=== PATIENT | male | born 1955 | race Caucasian/White ===

== ENCOUNTER → 2024-12-02 12:31 | Outpatient (REF) | payer MEDICARE, SELFPAY ==
[2024-12-02 13:17] LABS: Hematocrit 42.6 % (39.0-52.0); Hemoglobin 14.8 g/dL (13.0-18.0); Mean Corp Hgb Conc. 34.7 g/dL (33.0-37.0); Mean Corpuscular Volume 87.5 fL (80.0-94.0); Nucleated Red Blood Cells % 0 % (-); Platelet Count 224 10^3/uL (130-400); Red Cell Dist. Width 13.8 % (11.5-14.5)
[2024-12-02 14:17] LABS: ALT (SGPT) 199 U/L (0-50); AST (SGOT) 43 U/L (17-59); Albumin 4.1 g/dl (3.5-5.0); Alkaline Phosphatase 118 U/L (38-126); Blood Urea Nitrogen 20 mg/dl (9-20); Calcium 9.1 mg/dl (8.4-10.2); Carbon Dioxide 26 mmol/L (22-30); Chloride 106 mmol/L (98-107); Glucose 129 mg/dl (70-99); Lipase 74 U/L (23-300); Potassium 4.2 mmol/L (3.5-5.1); Sodium 142 mmol/L (135-145); Total Protein 6.9 g/dl (6.3-8.2); eGFR > 60.00
[2024-12-02 14:50] LABS: Amylase 39 U/L (30-110)
== END ==
LOC: REG 12:31
PROVIDERS: ATTENDING PHYSICIAN Physician Assistant Medical; FAMILY PHYSICIAN Family Medicine
DX: R10.9 Unspecified abdominal pain (principal); K21.9 Gastro-esophageal reflux disease without esophagitis; R82.998 Other abnormal findings in urine; L29.9 Pruritus, unspecified
CPT/HCPCS: 36415; 80053; 82150; 83690; 85025

== ENCOUNTER → 2024-12-03 06:48 | Outpatient (REF) | payer MEDICARE, SELFPAY | LOC: RAD 06:48 | PROVIDERS: ATTENDING PHYSICIAN Physician Assistant Medical; REFERRING PHYSICIAN Internal Medicine | DX: R10.9 Unspecified abdominal pain (principal); R18.8 Other ascites; K74.60 Unspecified cirrhosis of liver; N28.9 Disorder of kidney and ureter, unspecified; K80.20 Calculus of gallbladder without cholecystitis without obstruction; E80.6 Other disorders of bilirubin metabolism | CPT/HCPCS: 74177; 76700; Q9967 ==

== ENCOUNTER → 2024-12-24 07:16 | Outpatient (REF) | payer MEDICARE, SELFPAY | LOC: MRI 3T 07:16 | PROVIDERS: ATTENDING PHYSICIAN Specialist; PRIMARYCARE PHYSICIAN Family Medicine | DX: R10.84 Generalized abdominal pain (principal) | CPT/HCPCS: 74183; A9575 ==

== ENCOUNTER 2025-01-05 06:06 | Day surgery (SDC) | payer MEDICARE, SELFPAY ==
[2025-01-05 07:05] VITALS: BP 100/75; BMI 26.6
[2025-01-05 07:15] VITALS: BMI 26.6
[2025-01-05 09:09] VITALS: BP 110/81; BP_SYST 15
[2025-01-05 09:15] VITALS: BP 115/80
[2025-01-05 09:30] VITALS: BP 125/82
[2025-01-05 09:45] VITALS: BP 126/79
[2025-01-05 10:05] VITALS: BP 127/76
== END 2025-01-05 10:20 | disposition home or self-care (01) ==
LOC: SDS 06:06
PROVIDERS: ATTENDING PHYSICIAN Specialist
DX: K80.50 Calculus of bile duct without cholangitis or cholecystitis without obstruction (principal); K22.89 Other specified disease of esophagus; K20.90 Esophagitis, unspecified without bleeding; K57.10 Diverticulosis of small intestine without perforation or abscess without bleeding; R74.8 Abnormal levels of other serum enzymes; R10.84 Generalized abdominal pain
CPT/HCPCS: 43262; 74330; 76000; C1769

== ENCOUNTER 2025-03-24 06:16 | Day surgery (SDC) | payer MEDICARE, SELFPAY | END 2025-03-24 11:57 | disposition home or self-care (01) | LOC: GI 06:16 | PROVIDERS: ATTENDING PHYSICIAN Specialist; FAMILY PHYSICIAN Family Medicine | DX: K22.70 Barrett's esophagus without dysplasia (principal); K20.90 Esophagitis, unspecified without bleeding; K57.10 Diverticulosis of small intestine without perforation or abscess without bleeding | CPT/HCPCS: 43239; 88305 ==

== ENCOUNTER → 2025-04-14 12:55 | Outpatient (REF) | payer MEDICARE, SELFPAY ==
[2025-04-14 14:18] LABS: Urine Character Clear (Clear)
[2025-04-14 14:19] LABS: Hematocrit 46.6 % (39.0-52.0); Hemoglobin 16.7 g/dL (13.0-18.0); Mean Corp Hgb Conc. 35.8 g/dL (33.0-37.0); Mean Corpuscular Volume 86.1 fL (80.0-94.0); Nucleated Red Blood Cells % 0 % (-); Platelet Count 154 10^3/uL (130-400); Red Cell Dist. Width 12.5 % (11.5-14.5)
[2025-04-14 14:26] LABS: Urine White Cell 0-2 /HPF (0-5)
[2025-04-14 15:48] LABS: ALT (SGPT) 38 U/L (0-50); AST (SGOT) 23 U/L (17-59); Albumin 4.9 g/dl (3.5-5.0); Alkaline Phosphatase 48 U/L (38-126); Blood Urea Nitrogen 22 mg/dl (9-20); Calcium 9.3 mg/dl (8.4-10.2); Carbon Dioxide 25 mmol/L (22-30); Chloride 101 mmol/L (98-107); Glucose 144 mg/dl (70-99); Lipase 44 U/L (23-300); Potassium 4.2 mmol/L (3.5-5.1); Sodium 136 mmol/L (135-145); Total Protein 7.7 g/dl (6.3-8.2); eGFR > 60.00
[2025-04-14 16:20] LABS: TSH 1.87 uIU/ml (0.47-4.68)
== END ==
LOC: REG 12:55
PROVIDERS: ATTENDING PHYSICIAN Student in an Organized Health Care Education/Training Program
DX: R10.30 Lower abdominal pain, unspecified (principal); R11.0 Nausea
CPT/HCPCS: 36415; 80053; 81003; 81015; 83690; 84153; 84154; 84443; 85025; 87086

== ENCOUNTER → 2025-04-15 09:36 | Outpatient (REF) | payer MEDICARE, SELFPAY | LOC: RAD 09:36 | PROVIDERS: ATTENDING PHYSICIAN Student in an Organized Health Care Education/Training Program; FAMILY PHYSICIAN Family Medicine | DX: R10.30 Lower abdominal pain, unspecified (principal) | CPT/HCPCS: 74177; Q9967 ==

== ENCOUNTER 2025-04-15 19:15 | Inpatient (IN) | payer MEDICARE, SELFPAY ==
[2025-04-15 15:40] VITALS: BMI 27.7
[2025-04-15 15:48] VITALS: BP 121/76
[2025-04-15 16:18] LABS: Hematocrit 46.9 % (39.0-52.0); Hemoglobin 16.7 g/dL (13.0-18.0); Mean Corp Hgb Conc. 35.6 g/dL (33.0-37.0); Mean Corpuscular Volume 85.1 fL (80.0-94.0); Nucleated Red Blood Cells % 0 % (-); Platelet Count 156 10^3/uL (130-400); Red Cell Dist. Width 12.8 % (11.5-14.5)
[2025-04-15 16:31] LABS: ALT (SGPT) 33 U/L (0-50); AST (SGOT) 21 U/L (17-59); Albumin 4.4 g/dl (3.5-5.0); Alkaline Phosphatase 37 U/L (38-126); Blood Urea Nitrogen 24 mg/dl (9-20); Calcium 8.9 mg/dl (8.4-10.2); Carbon Dioxide 26 mmol/L (22-30); Chloride 99 mmol/L (98-107); Glucose 121 mg/dl (70-99); Lipase 35 U/L (23-300); Potassium 3.6 mmol/L (3.5-5.1); Sodium 136 mmol/L (135-145); Total Protein 7.2 g/dl (6.3-8.2); eGFR > 60.00
[2025-04-15 17:40] VITALS: BP 114/73
[2025-04-15] MEDS: NSS 1000 IV ×3 (17:53→21:20)
[2025-04-15] MEDS: ZOSYN 50 IV ×2 (17:54→23:21)
--- NOTE | 2025-04-15 17:59 | ED.GENMED ---
History of Present Illness
General
Chief Complaint: Abdominal Symptoms
Source: patient, records and physician
Exam Limitations: none
Time Seen by Provider: 04/15/25 17:20
Nursing documentation reviewed up to this point in time: agreed with
History of Present Illness
History of Present Illness:
69-year-old male with a past medical history of hypertension, GERD who presents to the ER for evaluation of abdominal pain�outpatient workup concerning for cholecystitis. 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
significant upper abdominal pain. He says he had pain all day yesterday had nausea and vomiting in the evening and pain improved with vomiting. Today he only had a small amount to eat but he says his pain has been less. No fevers or chills. He
saw his primary doctor for evaluation and was sent for outpatient labs and CT and was found to have signs concerning for cholecystitis. Referred to the ER for assessment. He does report history of gallstones and choledocholithiasis in December of
this year. Aside from abdominal pain and vomiting he denies any change in his bowel habits. Denies fever or chills. Denies other acute complaints. Review of medication shows no blood thinners.
Past History
Past History
ED Past Medical History: HTN and Other (Diverticular disease)
ED Past Surgical History: None
Social History
Tobacco: Non-smoker
Alcohol: None
Drug: None
Personal:
Living: with family
Family History
Family History: Other (Noncontributory)
Review of Systems
Review of Systems
All Other Systems: ROS reviewed and negative except as documented in HPI and ROS
Constitutional: Denies fever or chills
Respiratory: Denies trouble breathing
Cardiac: Denies chest pain
ABD/GI: Reports abdominal pain, nausea and vomiting; Denies diarrhea or constipated
: Denies flank pain
Musculoskeletal: Denies neck pain or back pain
Neurological: Denies dizzy or headache
Phy Exam
Physical Exam
Physical Exam:
General: Awake, alert, oriented x3; no acute distress
Head: Normocephalic, atraumatic
Eyes: Conjunctiva normal, sclera anicteric
Throat: Airway intact, handling secretions
Neck: Trachea midline, supple without meningismus
Lungs: Breathing comfortably with no distress
Heart: Regular rate
Abd: Soft, non distended, tender to palpation in the right upper quadrant
Neuro: Grossly intact
Skin: Warm and dry
Extremities: No edema in extremities, warm and well-perfused
Scores
Heart Failure Risk
Heart Failure Risk Score: Not Applicable
Heart Score for Chest Pain Patients
STEMI patient?: Not applicable
Withdrawal Assessment of Alcohol
Withdrawal Assessment Completed?: Not applicable
Sepsis
Sepsis Screening
Sepsis Assessment: Sepsis
Sepsis Screening: Lactate >2mmol/L
Sepsis Screen
Sepsis Screen: Sepsis
Date: 04/15/25
Time: 17:27
Course
Orders/Labs/Results
Orders:
Orders
04/15/25 16:05
Complete Blood Count/With Diff Urgent
Comprehensive Metabolic Panel Urgent
Lactic Acid Urgent
Lipase Urgent
Blood Culture Urgent
POPEYE Source: Blood/Venous
Specimen Description:
04/15/25 17:27
0.9% Sodium Chloride 1000 ml [Nss] 1,000 ml IV BOLUS
Piperacillin/Tazo 3.375 Gram [Zosyn] 3.375 gram in 50 ml IV NOW
04/15/25 17:28
SURGICAL CONSULT Urgent
Consulting Provider: Shoaib Navarro
Was physician already notified: Yes
04/15/25 17:57
Direct Bilirubin Urgent
Abnormal Lab Results
04/15/25
16:05
WBC 19.5 H 10^3/uL
(4.8-10.8)
Abs Immat Gran (auto) 0.1 H 10^3/uL
(0-0.05)
Absolute Neuts (auto) 16.2 H 10^3/uL
(1.4-6.5)
Absolute Monos (auto) 1.2 H 10^3/uL
(0.1-0.6)
Neutrophils % 83.1 H %
(42.2-75.2)
Lymphocytes % 9.8 L %
(20.5-51.1)
BUN 24 H mg/dl
(9-20)
Glucose 121 H mg/dl
(70-99)
Lactic Acid 2.3 H mmol/L
(0.7-2.0)
Total Bilirubin 3.4 H D mg/dl
(0.2-1.3)
Alkaline Phosphatase 37 L U/L
(38-126)
04/15/25 16:05
04/15/25 16:05
Vital Signs
Initial and Last Documented VS:
Initial Vital Signs
Temp Pulse Resp BP Pulse Ox
37.3 C 113 18 121/76 94
04/15/25 15:48 04/15/25 15:48 04/15/25 15:48 04/15/25 15:48 04/15/25 15:48
Last Documented Vital Signs
Temp Pulse Resp BP Pulse Ox
37.5 C 113 18 114/73 94
04/15/25 17:44 04/15/25 15:48 04/15/25 17:44 04/15/25 17:40 04/15/25 17:44
MDM/Problems Addressed
Differential Diagnosis Includes:
Cholecystitis, choledocholithiasis, cholangitis
MDM/Problems Addressed:
69-year-old male presents for evaluation of abdominal pain�symptoms improved today but outpatient imaging concerning for cholecystitis. He does have tachycardia here but is normotensive, afebrile. He has continued upper abdominal tenderness. WBC
today has increased to 19.5 with predominant neutrophils. Chemistry was significant for elevated T. bili although transaminases and lipase are normal. His lactate is greater than 2. Plan to provide IV fluids. Treat with IV Zosyn. Blood cultures
were sent off. Case discussed with general surgery they will consult on the patient�case discussed with hospitalist for admission.
*Radiology
Radiology exam reviewed: radiology read reviewed (Reviewed outpatient CT)
*Pulse Oximetry
SaO2: 94
Oxygen Mode of Delivery: Room air
Patient hypoxic: no (94%)
*Critical Care Note
Total Time (30-74mins, 75-104mins- exclusive of procedures): Not Applicable
Data Reviewed
Review of Other/Old Records Reveals: Labs and Records
Source: patient, records, spouse and physician
Patient Management
Discussion with other providers: Hospitalist (Discussed with hospitalist) and Gastroenterology Nurse (Discussed with general surgeon)
Escalation/DeEscalation of care consider admission/obs:
Admission indicated
ED Attending Note
-
Portions of this chart may have been created with voice recognition software.� Occasional wrong word or��sound alike� substitutions may have occurred due to the inherent limitations of voice recognition software.
Discharge Plan
Departure
Patient Disposition: Admit
Date of Disposition: 04/15/25
Time of Disposition: 17:59
Admit to doctor: Castro
Presentation/result/management discussed w/ accepting MD/DO: Hospitalist
Discharge Problem:
Acute cholecystitis
Prescriptions:
No Action
losartan 50 mg Tablet
50 mg PO DAILY
loratadine 10 mg Tablet
10 mg PO DAILY
Fish Oil
1,400 mg PO DAILY
Interventions
Interventions:
[facility] Fall Risk Assessment Tool Last Done: 04/15/25 15:40
WE-Pncwru-Duxxdlcjtr Assessment Last Done: 04/15/25 17:42
Discharge Date and Time
Print Language: VIETNAMESE
--- NOTE | 2025-04-15 18:12 | HPS.HSE ---
Family Physician
-
Family Physician: Johanny Solano
Chief Complaint
-
abnormal out patient CT
History of Present Illness
Patient is a 69-year-old male with past medical history significant for essential hypertension and sleep apnea who presented to [facility] ED for evaluation of abnormal out patient CT. Patient reports acute onset of abdominal pain yesterday with 2
episodes of vomiting. He called and went to see primary care who ordered a abdominal/pelvis CT that was done this morning. He was called with results and recommended to go to hospital for evaluation and treatment for acute cholecystitis. Denies
fever, chills, cough, shortness of breath, nausea, constipation, dairrhea or urinary symptoms.
Medical History
Past Medical History
Past Medical History: Reports Other
Additional Past Medical History:
essential hypertension
sleep apnea
obesity
Barratt's esophagus
Past Surgical History: Reports Other
Additional Past Surgical History:
tonsillectomy
Social History
Tobacco: Non-smoker
Alcohol: None
Drug: None
Family History
Family History: Other (Mother: HTN Brother: DM)
Allergies / Home Medications
Allergies reflects when Allergies were last updated in [email or web address].
Home Medications with original date entered in [email or web address]
Allergy/Medication List:
Allergies
Allergy/AdvReac Type Severity Reaction Status Date / Time
No Known Allergies Allergy Verified 04/15/25 15:48
Home Medications
Fish Oil 1,400 mg PO SUTH 01/05/25
losartan 50 mg tablet 50 mg PO QPM 01/05/25
multivitamin 1 tab PO SUTH 04/15/25
omeprazole 40 mg capsule,delayed release 40 mg PO QPM 04/15/25
Review of Systems
-
History Source: Patient
Constitutional: Denies Fever or Chills
EENT: Denies Sore Throat
Respiratory: Denies Cough, Hemoptysis or Trouble Breathing
Cardiac: Denies Chest Pain, Diaphoresis, Palpitations or Syncope
Abdomen/GI: Reports Abdominal Pain and Vomiting; Denies Nausea, Diarrhea or Constipated
: Denies Dysuria, Frequency or Urgency
Musculoskeletal: Denies Joint Pain
Skin: Denies Rash
Neurological: Denies Dizzy, Headache, Weakness or Numbness
Physical Exam
Vital Signs
Vital Signs
Temp Pulse Resp BP Pulse Ox
99.5 F 113 18 114/73 94
04/15/25 17:44 04/15/25 15:48 04/15/25 17:44 04/15/25 17:40 04/15/25 18:02
Physical Exam
General: Well Developed, Well Nourished, No Apparent Distress, Comfortable and Conversant
HEENT: NormoCephalic, Moist mucous membranes, PERRLA, Nose Appears Normal and Ears Appear Normal
Respiratory: Clear and Decreased Breath Sounds; No Wheezes, Rales or Rhonchi
Cardiac: S1/S2 and Regular Rhythm; No Tachycardia, Murmur, Rub or Peripheral Edema
GI: Soft, Non Distended, Normal Bowel Sounds and Tender
Musculoskeletal: No Clubbing, No Cyanosis and No Edema
Skin: Warm and IV/Catheter Site
Neuro: Awake and AO x 3
Psych: Calm and Intact Judgment/Insight
Laboratory Results
-
04/15/25 16:05
04/15/25 16:05
Laboratory Results
Lactic Acid 2.3 mmol/L (0.7-2.0) H 04/15/25 16:05
Total Bilirubin 3.4 mg/dl (0.2-1.3) H D 04/15/25 16:05
AST 21 U/L (17-59) 04/15/25 16:05
ALT 33 U/L (0-50) 04/15/25 16:05
Alkaline Phosphatase 37 U/L (38-126) L 04/15/25 16:05
Lipase 35 U/L (23-300) 04/15/25 16:05
Data Reviewed
-
CT Scan: Report Reviewed by me (Abd/Pel: 1. Gallbladder is mildly distended, with gallbladder wall thickening and adjacent inflammatory change. Multiple gallstones are seen in the region of the gallbladder neck. Findings are suggestive of acute
cholecystitis. 2. No definite common bile duct stone is appreciated, and no significant)
Lab Data: Labs Reviewed by me (WBC 19.5, Neut 83.1, Lactic 2.3, Tot Bili 3.4)
Impression/Plan
-
IMPRESSION/PLAN:
#abdominal pain with vomiting likely 2/2 acute cholecystitis
WBC 19.5, Neut 83.1, Lactic 2.3, Tot Bili 3.4
Abd/Pel CT: 1. Gallbladder is mildly distended, with gallbladder wall thickening and adjacent inflammatory change. Multiple gallstones are seen in the region of the gallbladder neck. Findings are
suggestive of acute cholecystitis.
2. No definite common bile duct stone is appreciated, and no significant biliary ductal dilation.
3. Small amount of pelvic free fluid, likely reactive.
4. Colonic diverticulosis without evidence of acute diverticulitis.
5. Findings suggestive of mesenteric panniculitis, unchanged compared to prior study.
- Admit to med/surg
- Consult Surgery
- NPO at midnight
- pain regimen
- antiemetics
#essential hypertension
- continue losartan
#obesity
- encourage balanced diet and exercise to promote weight loss
#Barratt's esophagus
- continue omeprazole
#sleep apnea
CPAP at night
Code status: full code
DVT prophylaxis: SCDs
--- NOTE | 2025-04-15 18:33 | W.PN.UPDATE ---
Update Note
Progress Note Update
This is an addendum to H&P written by ENGINEER BYPRODUCT Sheridan Sheldon
I saw and examined the patient.
The ENGINEER BYPRODUCT's note was reviewed and I agree with the note.
Comment:
Mr. Kamala Merino is a 69 yo man with hx essential HTN, GERD, hx choledocholithiasis s/p ERCP, presents to the ER with abdominal pain that started yesterday morning at 3AM. Associated with nausea and vomiting.
Triage VS: T 37.3 C, P 113, RR 18, BP 121/76, SpO2 94%
LABS: WBC 19.5, Hg 16.7, PLT 156, Na 136, K+ 3.6, CO2 26, BUN 24, Cr 1.2, Lactate 2.3, T. Bili 3.4, direct 0.3, AST 21, ALT 33, Alk Phos 37, Lipase 35
Abdomen/Pelvis CT
IMPRESSION:
1. Gallbladder is mildly distended, with gallbladder wall thickening and adjacent inflammatory change. Multiple gallstones are seen in the region of the gallbladder neck. Findings are suggestive of acute cholecystitis.
2. No definite common bile duct stone is appreciated, and no significant biliary ductal dilation.
3. Small amount of pelvic free fluid, likely reactive.
4. Colonic diverticulosis without evidence of acute diverticulitis.
5. Findings suggestive of mesenteric panniculitis, unchanged compared to prior study.
MAR: IVF, IV Zosyn
Acute Cholecystitis
Prior hx choledocholithiasis s/p ERCP - patient states he wanted to wait to have surgery until after the holidays
-hopkins krystle-op risk score = 0.1%; no hx CAD or reports of anginal symptoms; medically optimized for surgery, benefits outweigh risks
-continue IV Zosyn
-IVF
-NPO after MN
Essential HTN
-continue Losartan qhs with hold parameters (starting tomorrow)
DVT PPx SCD
FULL CODE
[2025-04-15 21:13] VITALS: BP 158/85
[2025-04-15] MEDS: TYLENOL 650 MG PO (21:19)
[2025-04-15 21:46] VITALS: BMI 27.7
[2025-04-15] MEDS: COZAAR 50 MG PO (22:19)
[2025-04-15 23:21] VITALS: BP 100/64
[2025-04-16] VITALS (15 sets, daily range): BP systolic 94–128; BP diastolic 57–78; PULSE 2–86
[2025-04-16] MEDS: ZOSYN 50 IV ×3 (05:19→20:13)
[2025-04-16 07:51] LABS: Hematocrit 39.3 % (39.0-52.0); Hemoglobin 14.1 g/dL (13.0-18.0); Mean Corp Hgb Conc. 35.9 g/dL (33.0-37.0); Mean Corpuscular Volume 85.4 fL (80.0-94.0); Platelet Count 117 10^3/uL (130-400); Red Cell Dist. Width 13.1 % (11.5-14.5)
[2025-04-16 08:21] LABS: ALT (SGPT) 22 U/L (0-50); AST (SGOT) 15 U/L (17-59); Albumin 3.2 g/dl (3.5-5.0); Alkaline Phosphatase 37 U/L (38-126); Total Protein 5.7 g/dl (6.3-8.2)
[2025-04-16 08:23] LABS: Blood Urea Nitrogen 21 mg/dl (9-20); Calcium 8.0 mg/dl (8.4-10.2); Carbon Dioxide 25 mmol/L (22-30); Chloride 105 mmol/L (98-107); Estimated Creatinine Clearance 63 ml/min; Glucose 115 mg/dl (70-99); Potassium 3.5 mmol/L (3.5-5.1); Sodium 136 mmol/L (135-145); eGFR > 60.00
--- NOTE | 2025-04-16 09:45 | CON.GS ---
Addendum entered and electronically signed by Shoaib Navarro MD 04/16/25 10:03:
I saw and examined the patient.
The Ripsawyer's note was reviewed and I agree with the note.
Comment: Fever, leukocytosis, RUQ ttp, LFTs elevated, hx notable for ERCP 2 months ago, he was hoping to delay surgery but had recurrent abd pain. Pain slightly improved this am, minimal ttp on exam. OCTOR fopr rCCY with cholang. IV abx
Original Note:
Consultation
-
Date/Time Consultation Performed: 04/16/25 0745
Medical History
-
Chief Complaint: RUQ pain on Saturday
History of Present Illness:
Mr Moreno is a 69 yo male with a h/o JOSIE with CPAP, March's esophagus choledocholithiasis s/p ERCP in December who was recommended to follow with a surgeon to discuss subsequent cholecystectomy; however has not yet follow up yet who
presents with abnormal outpatient CT imaging which was done in work up of RUQ pain he developed Saturday with 2 episodes of vomiting. He saw his PCP and CT scan was recommended. He notes that pain has since resolved but, as he was told his CT scan
was abnormal he presented for evaluation yesterday evening. Overnight, he was noted to be febrile to 101.8. He denies nausea or vomiting. He denies
Past Medical History
Past Medical History: GERD, HTN and Other (JOSIE on CPAP, duodenal diverticulum)
Past Surgical History: Tonsilectomy
Social History
Tobacco: Non-Smoker
Alcohol: None
Family History
Family History: Diabetes (brother)
Allergies / Home Medications
Allergy/AdvReac Type Severity Reaction Status Date / Time
No Known Allergies Allergy Verified 04/15/25 15:48
�Medication �Instructions �Recorded �Confirmed �Type
Fish Oil 1,400 mg PO SUTH Supplement 01/05/25 04/15/25 History
losartan 50 mg tablet 50 mg PO QPM Blood Pressure 01/05/25 04/15/25 History
multivitamin 1 tab PO SUTH Supplement 04/15/25 04/15/25 History
omeprazole 40 mg capsule,delayed 40 mg PO QPM Gastrointestinal Issue 04/15/25 04/15/25 History
release
Review of Systems
-
History Source: Patient
All other systems: Negative unless noted
A 10 point review of systems was completed, and was negative except as per HPI.
Physical Exam
Vital Signs
Temp Pulse Resp BP Pulse Ox
99.3 F 92 20 128/57 92
04/16/25 07:10 04/16/25 07:10 04/16/25 07:10 04/16/25 07:10 04/16/25 07:10
04/15/25 04/16/25 04/17/25
06:59 06:59 06:59
Actual Weight 92.487 kg
Body Mass Index (BMI) 27.7
Lab Results
04/16/25 07:21
04/16/25 07:21
WBC 15.9 10^3/uL (4.8-10.8) H 04/16/25 07:21
Hgb 14.1 g/dL (13.0-18.0) 04/16/25 07:21
Hct 39.3 % (39.0-52.0) 04/16/25 07:21
Plt Count 117 10^3/uL (130-400) L D 04/16/25 07:21
Abs Immat Gran (auto) 0.1 10^3/uL (0-0.05) H 04/15/25 16:05
Neutrophils % 83.1 % (42.2-75.2) H 04/15/25 16:05
Physical Exam
General: Well Developed and Well Nourished
HEENT: Moist Mucous Membranes
Respiratory: Non Labored Respirations
GI: Soft, Non Tender and Non Distended
Skin: Warm and Dry
Neuro: Awake, Alert and AO x 3
Psych: Calm
Data Reviewed
-
CT Scan: Image Personally Visualized and interpreted, Report Reviewed by me, Discussed with Physician, Discussed with Patient and Discussed with Family
Labs: Labs Reviewed by me, Discussed with Physician, Discussed with Patient and Discussed with Family
Old Records: Reviewed
Assessment / Plan
-
69 yo male with h/o choledocholithiasis s/p ERCP 12/2024 presenting with RUQ 2 days ago with subsequent outpatient CT demonstrating cholecystitis. He denies active pain but was febrile overnight to 101.8 with leukocytosis to 19.5 POA now decreased to
15.9. Tachycardic on arrival now with normal HR. BP stable. Lactic acid elevated to 2.3 on admission down to 0.9 on repeat. Bilirubin elevated to 3.4 now trended down to 2.9, other LFT's without significant abnormalities. Normal lipase. CT imaging
reviewed with mildly distended gallbladder with wall thickening and inflammatory changes. Multiple stones seen in the gallbladder neck. No further pain, no RUQ on exam.
Plan:
Keep NPO
OR today for robotic cholecystectomy with intraoperative cholangiogram
Continue IV ABX
Continue IVF
Analgesics prn
--- NOTE | 2025-04-16 10:38 | CM ---
Addendum entered by Yamile Merino 04/16/25 10:44:
OR today for robotic cholecystectomy with intraoperative cholangiogram.
Original Note:
CM reviewed chart, patient seen bedside, initial assessment completed.
Patient is a 69-year-old male with past medical history significant for essential hypertension and sleep apnea who presented to [facility] ED for evaluation of abnormal out patient CT.
Patient resides with his and mother in a two story home, two steps to enter. Bedroom on second floor, normal flight of steps up.
Patient has a CPAP, DME supplier [employer].
Patient denies VN/SNF hx.
PCP Johanny Solano, Pharmacy [facility], confirms prescription coverage.
Patient denies insecurities at home.
CM will continue to follow.
Plan; home with family when stable
[2025-04-16] MEDS: NSS 1000 IV ×2 (12:34→20:14)
--- NOTE | 2025-04-16 14:58 | W.PN.HOSP.TC ---
Today's Communication/Plan
-
OR today
Assessment / Plan
Assessment / Plan
69M with HTN, JOSIE, p/w abdominal pain/vomiting.
Acute cholecystitis
N.p.o
GS consult
OR today
IV n.p.o. pain meds
IV antiemetics as needed
HTN
BP controlled
Losartan
March's esophagus
PPI
JOSIE
CPAP
Anticipated Discharge: Within 24 hours
Subjective/Interval History
-
Date of Service: April 16, 2025
Patient seen in a.m., denies issues.
Objective Data
-
Labs:
Laboratory Results
04/16/25
07:21
WBC 15.9 H
Hgb 14.1
Hct 39.3
Plt Count 117 L D
Sodium 136
Potassium 3.5
Chloride 105
Carbon Dioxide 25
BUN 21 H
Creatinine 1.2
Glucose 115 H
Calcium 8.0 L
Total Bilirubin 2.9 H
AST 15 L
ALT 22
Alkaline Phosphatase 37 L
Vital Signs:
Vital Signs
Temp Pulse Resp BP Pulse Ox
99.6 F 92 20 128/57 94
04/16/25 11:00 04/16/25 07:10 04/16/25 07:10 04/16/25 07:10 04/16/25 14:15
I&O
04/15/25 04/16/25 04/17/25
06:59 06:59 06:59
Intake Total 1000 / 1000
Balance 1000 / 1000
Review of Systems
-
History Source: Patient
All other systems: Reviewed and negative
Physical Exam
-
General: No Apparent Distress
HEENT: Moist Mucous Membranes, Anicteric and PERRLA
Respiratory: Clear to Auscultation; Negative Wheezes, Rales or Rhonchi
Cardiac: Regular Rhythm and S1/S2; Negative Murmur, Rub or Gallop
GI: Soft, Nontender, Nondistended and Normal Bowel Sounds
Musculoskeletal: No Edema
Skin: Warm and Dry; Negative Rash, Ulcers or Lesions
Neuro: Awake and AO x 3
Hematologic / Lymphatic: No Lymphadenopathy
Psych: Calm
--- NOTE | 2025-04-16 17:45 | W.IMMPOSTOP ---
Surgical Immed Post Op Note
-
Primary Surgeon: Ramon
Assisting: Nathan BRENNAN
Pre-op Diagnosis: Acute calculous cholecystitis
Post-op Diagnosis: Same
Procedure Performed: Robot assisted laparoscopic cholecystectomy with intraoperative near infrared imaging of major extrahepatic bile ducts and intraoperative cholangiogram, modifier 22
Anesthesia Type: GETA
Specimen / Cultures: Gallbladder
Estimated Blood Loss: 40cc -liver bed oozing
Complications: None immediate
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
suction/irrigation to enhance exposure
--- NOTE | 2025-04-16 17:48 | OR.RPT ---
Operative Report
Operative Report
Primary Surgeon: Ramon
Assisting: Nathan BRENNAN
Pre-op Diagnosis: Acute calculous cholecystitis
Post-op Diagnosis: Same
Procedure Performed: Robot assisted laparoscopic cholecystectomy with intraoperative near infrared imaging of major extrahepatic bile ducts and intraoperative cholangiogram, modifier 22
Anesthesia Type: GETA
Specimen / Cultures: Gallbladder
Estimated Blood Loss: 40cc -liver bed oozing
Complications: None immediate
Operative Findings: Severely inflamed gallbladder with densely adherent colon, thick inflammatory fat encasing the infundibulum, necrotic posterior wall with gangrene, severe wall edema, optometric assistant port required for colon retraction and
suction/irrigation to enhance exposure
DOS: 04/16/25
Indications: This 69M developed right upper quadrant/epigastric pain and on workup was found to have acute calculous cholecystitis, with elevated liver enzymes and normal sized ducts. Laparoscopic cholecystectomy with robotic assist and with
cholangiogram was planned.
Description of procedure: The patient was placed on the operating table in the supine position. General anesthesia was induced. A time-out was completed verifying correct patient, procedure, site, positioning, and special equipment prior to
beginning this procedure. An orogastric tube was placed. The abdomen was prepped and draped in the usual sterile fashion. A stab incision was made in left upper quadrant and the Veress needle was inserted. Proper position was confirmed by aspiration
and saline meniscus test. The abdomen was insufflated with carbon dioxide to a pressure of 12 mmHg. The patient tolerated insufflation well.
An 8mm optical trocar was then inserted in the left upper quadrant. The laparoscope was inserted and the abdomen inspected. Additional 8mm trocars were then inserted in the following locations: above the umbilicus, right mid clavicular line at the
level of the umbilicus and 6cm lateral to this on the right. The abdomen was inspected and no abnormalities were found. The table was placed in the reverse Trendelenburg position with the right side up. The colon was plastered to the gallbladder
wall and was gently teased down bluntly. An optometric assistant port was placed to aid in retracting the colon inferiorly as well as for suction. Dense inflamed omental adhesions to the gallbladder fundus were taken down carefully. The dome of the
gallbladder was grasped with an atraumatic grasper and retracted over the dome of the liver. The infundibulum was grasped with an atraumatic grasper and retracted toward the right lower quadrant. The infundibulum was encased in dense inflamed
fatty tissue that was carefully dissected down layer by layer. This maneuver exposed Calot�s triangle. The cystic duct and cystic artery were dissected out until the only two structures entering the gallbladder were these two structures. The common
duct was protected. ICG was used to visualize the cystic and common ducts. The common duct was protected.
A tete was made in the cystic duct and a catheter threaded through the veress needle insertion site and into the cystic duct and secured with a 2-0 silk tie. A cholangiogram was obtained showing good flow into duodenum, good opacification of biliary
tree without filling defects. The catheter was removed.
The cystic artery was controlled with bipolar and divided. The cystic duct was doubly clipped and divided. The gallbladder was dissected free from the liver bed. The posterior plane was severely thickened and edematous with patchy areas of gangrene
and necrosis. The liver bed oozed a moderate amount of blood. Hemostasis was assured with cautery and the gallbladder and contained stones were removed using an endoscopic retrieval bag placed through the umbilical port. The gallbladder was passed
off the table as a specimen. The fossa was irrigated thoroughly with sterile saline. There was no evidence of bleeding from the gallbladder fossa or cystic artery or leakage of the bile from the cystic duct stump. The umbilical trocar site was
closed at the fascial level laparoscopically with 2-0 PDS. Secondary trocars were removed under direct vision and noted to be hemostatic. The laparoscope was withdrawn and the umbilical trocar removed. The abdomen was allowed to collapse. The skin
was closed with subcuticular sutures of 4-0 monocryl and topical skin adhesive. The orogastric tube was removed.
The patient tolerated the procedure well and was taken to the postanesthesia care unit in stable condition.
[2025-04-16] MEDS: PROTONIX 40 MG PO (20:11)
[2025-04-17] MEDS: ZOSYN 50 IV ×3 (00:25→12:02)
[2025-04-17 06:58] LABS: Hematocrit 39.0 % (39.0-52.0); Hemoglobin 14.1 g/dL (13.0-18.0); Mean Corp Hgb Conc. 36.2 g/dL (33.0-37.0); Mean Corpuscular Volume 87.6 fL (80.0-94.0); Nucleated Red Blood Cells % 0 % (-); Platelet Count 113 10^3/uL (130-400); Red Cell Dist. Width 13.2 % (11.5-14.5)
[2025-04-17 07:00] VITALS: BP 116/74
[2025-04-17 07:30] LABS: ALT (SGPT) 81 U/L (0-50); AST (SGOT) 51 U/L (17-59); Albumin 3.1 g/dl (3.5-5.0); Alkaline Phosphatase 38 U/L (38-126); Blood Urea Nitrogen 28 mg/dl (9-20); Calcium 7.8 mg/dl (8.4-10.2); Carbon Dioxide 26 mmol/L (22-30); Chloride 105 mmol/L (98-107); Estimated Creatinine Clearance 63 ml/min; Glucose 164 mg/dl (70-99); Potassium 3.8 mmol/L (3.5-5.1); Sodium 138 mmol/L (135-145); Total Protein 5.7 g/dl (6.3-8.2); eGFR > 60.00
--- NOTE | 2025-04-17 09:45 | W.PN.GS2 ---
Addendum entered and electronically signed by Giovanni Garcia MD 04/17/25 10:33:
Patient seen and examined with surgical DUMPER OPERATOR. Agree with documented progress note.
Overall patient states that he is feeling well postoperatively with some incisional discomfort but no significant pain.
He ate breakfast without nausea or vomiting.
AFVSS
NAD AAO x 3
ABD: Soft, not significantly distended, mild incisional tenderness. Incisions with glue dressings.
Laboratory values all improving this a.m.
A/P: POD #1 status post RAL Lynn with cholangiogram
Stable for discharge from surgical standpoint
Given severity of acute calculous cholecystitis recommending total of a 5-day course of p.o. antibiotics with transition to Augmentin
Outpatient surgical follow-up with Dr. Navarro in 2 to 3 weeks
Original Note:
Today's Communication / Plan
-
dispo planning
Assessment / Plan
-
69 yo male presenting with ACC now POD #1 RAL cholecystectomy with negative IOC
AFVSS
Leukocytosis much improved
Bilirubin continues trending down
Following expected post operative course
Plan:
IV ABX with zosyn while inpatient, would complete a total of a five day course of abx post op, ok for transition to PO Augmentin on d/c
Diet as tolerated
Analgesics prn
Ok for d/c to home from surgical standpoint. Discharge instructions updated in chart and reviewed with patient
Subjective Data
-
Date of Service: April 17, 2025
Pt seen and examined at bedside with Dr. Garcia. Denies n/v. Tolerating diet. Some soreness but not much pain. Passing some flatus.
Objective Data
-
Intake and Output
04/16/25 04/17/25 04/18/25
06:59 06:59 06:59
Intake Total 2455 / 2455
Balance 2455 / 2455
Intake:
Oral fluids 480 / 480
IV fluids (Total) 1874 / 1874
normosol 75 / 75
IV piggybacks 100 / 100
Other:
How many times incontinent 1
MODERATE amount urine
Number of approximated MODERATE 1
amounts of urine
Number of approximated LARGE 1
amounts of urine
Vital Signs
Temp Pulse Resp BP Pulse Ox
97.5 F 65 16 116/74 95
04/17/25 07:00 04/17/25 07:00 04/17/25 07:00 04/17/25 07:00 04/17/25 07:00
Lab Results
04/17/25 06:10
04/17/25 06:10
Calcium 7.8 mg/dl (8.4-10.2) L 04/17/25 06:10
Total Bilirubin 1.6 mg/dl (0.2-1.3) H D 04/17/25 06:10
Direct Bilirubin 0.2 mg/dl (0.0-0.4) 04/16/25 07:21
AST 51 U/L (17-59) 04/17/25 06:10
ALT 81 U/L (0-50) H 04/17/25 06:10
Alkaline Phosphatase 38 U/L (38-126) 04/17/25 06:10
Total Protein 5.7 g/dl (6.3-8.2) L 04/17/25 06:10
Albumin 3.1 g/dl (3.5-5.0) L 04/17/25 06:10
Physical Exam
-
NAD
ABD soft, expected ttp, ND
Incisions with intact glue, no erythema
Patient has a rodríguez catheter: No
Patient has a central line: No
[2025-04-17] MEDS: NSS IV (11:42)
--- NOTE | 2025-04-17 12:16 | W.DCSUMMARY ---
Discharge Summary
Discharge Data
Date of Admission: 04/15/25
Date of Discharge: 04/17/25
Total time spent discharging patient (in min): 31
-
Pending Results: No
Hospital Course
Attending physician on day of discharge:
Saige Nicholas MD
Discharge diagnosis:
Acute cholecystitis
Secondary diagnoses:
HTN
Consultations:
General surgery
Procedures:
Robot assisted laparoscopic cholecystectomy with intraoperative near infrared imaging of major extrahepatic bile ducts and intraoperative cholangiogram
Hospital course:
69M with HTN, JOSIE, p/w abdominal pain/vomiting. Found to have acute cholecystitis. Taken to the OR by general surgery for above procedure. He was on empiric IV antibiotics to which were changed to oral on discharge. Other chronic conditions were
stable.
Diagnostic Findings:
Blood cultures no growth to date
CT A/P: 1. Gallbladder is mildly distended, with gallbladder wall thickening and adjacent inflammatory change. Multiple gallstones are seen in the region of the gallbladder neck. Findings are suggestive of acute cholecystitis.
2. No definite common bile duct stone is appreciated, and no significant biliary ductal dilation.
3. Small amount of pelvic free fluid, likely reactive.
4. Colonic diverticulosis without evidence of acute diverticulitis.
5. Findings suggestive of mesenteric panniculitis, unchanged compared to prior study.
Physical exam on discharge:
Gen: NAD
HEENT: PERRLA, EOMI, MMM, neck supple
Cards: RRR, no M/G/R
Resp: Lungs CTAB, no W/R/R
GI: soft, NT/ND/NABS
MSK: No edema
Skin: warm and dry, no rash, ulcer or lesions
Heme: No LAD
Psych: Calm
Neuro: AAOx3
Discharge disposition:
Home
Discharge Plan
-
Patient Disposition: Home (Routine Discharge)
Discharge Diagnosis/Procedures: Acute cholecystitis
Diet: As tolerated and Low Fat
Additional Diets: Eat a low fat diet if you notice loose stools after surgery
Activity: No strenuous activity
Additional Activity: Do not lift over 20lbs for the next 2-3 weeks
Driving Restrictions: No driving for 24 hours
Bathing Restrictions: OK to Shower
Wound Care: Allow glue to flake off incisions over the next 2 weeks. Avoid scrubbing or picking off. Ok to shower but avoid tubs or pools for 1 week.
Activity Restrictions/Additional Instructions:
Call your surgeon if you have a fever >100.5, nausea with vomiting or worsening pain
Referrals:
Shoaib Navarro MD [Active, Surgical] - in two to three weeks
Johanny Solano DO [Family Provider, Family Practice]
Prescriptions:
New
amoxicillin-pot clavulanate 875-125 mg tablet
1 tab PO Q12 Qty: 9 0RF
Continued
losartan 50 mg Tablet
50 mg PO QPM
Fish Oil
1,400 mg PO SUTH
Rx Instructions:
takes 2x weekly on Saturday/ qpm
multivitamin Tablet
1 tab PO SUTH
Rx Instructions:
takes 2x weekly on Saturday/ qpm
omeprazole 40 mg Capsule,Delayed Release(Dr/Ec)
40 mg PO QPM
Discharge Orders:
Discharge Patient (As Directed); Ordered 04/17/25
Ordered By: Saige Nicholas
Discharge Date and Time
Print Language: TAMAZIGHT
--- NOTE | 2025-04-17 12:33 | CM ---
Patient is cleared for discharge to home today.
Plan; Home no needs.
== END 2025-04-17 13:01 | disposition home or self-care (01) | DRG 418 ==
LOC: 4 WEST ACU 19:15
PROVIDERS: Nurse Practitioner Family; Radiology Diagnostic Radiology; Registered Nurse; ADMITTING PHYSICIAN Student in an Organized Health Care Education/Training Program; ATTENDING PHYSICIAN Internal Medicine; CONSULT PHYSICIAN Surgery; EMERGENCY PHYSICIAN Emergency Medicine; FAMILY PHYSICIAN Family Medicine
PROC: BF101ZZ Fluoroscopy of Bile Ducts using Low Osmolar Contrast (ICD-10-PCS; 2025-04-16)
PROC: 0FT44ZZ Resection of Gallbladder, Percutaneous Endoscopic Approach (ICD-10-PCS; 2025-04-16)
PROC: 8E0W4CZ Robotic Assisted Procedure of Trunk Region, Percutaneous Endoscopic Approach (ICD-10-PCS; 2025-04-16)
PROC: 5A09357 Assistance with Respiratory Ventilation, Less than 24 Consecutive Hours, Continuous Positive Airway Pressure (ICD-10-PCS; 2025-04-16)
DX: K80.00 Calculus of gallbladder with acute cholecystitis without obstruction (principal); I96 Gangrene, not elsewhere classified; I10 Essential (primary) hypertension; G47.33 Obstructive sleep apnea (adult) (pediatric); E66.9 Obesity, unspecified; Z82.49 Family history of ischemic heart disease and other diseases of the circulatory system; Z83.3 Family history of diabetes mellitus; K21.9 Gastro-esophageal reflux disease without esophagitis; K57.50 Diverticulosis of both small and large intestine without perforation or abscess without bleeding; K66.0 Peritoneal adhesions (postprocedural) (postinfection)
CPT/HCPCS: 74300; 76000; 80048; 80053; 80076; 82248; 83605; 83690; 85025; 85027; 87040; 88304; 94660; 96361; 96365; 99284; A4300